=== PATIENT | male | born 1990 | race Caucasian/White ===

== ENCOUNTER 2018-01-05 12:21 | Emergency (ER) | payer BC ==
[2018-01-05 12:23] VITALS: BP 122/76; BMI 27.3
--- NOTE | 2018-01-05 12:50 | RAD ---
HISTORY: Pain Study: Three-view right ankle Comparison: No priors Findings: There is lateral soft tissue swelling of the ankle. No fracture or dislocation is seen. Ankle mortis e is well maintained. IMPRESSION: Lateral soft tissue swelling without fracture. Reported By:
--- NOTE | 2018-01-05 13:05 | DR.EXTPAIN ---
HPI - Time seen Time seen: 12:40 - PCP Primary Care Physician: KIM - HPI Comment HPI Comment: rolled rt ankle 1 hr ago, prior rt ankjle sprain and prior ' hairline fx' rt ankle per pt - Complaint/Symptoms Chief Complaint:: PT C/O RT ANKLE PAIN PT STATE HE TWISTED HIS ANKLE AND FELT A POP AND SOMEONE FELL ON TOP OF HIS FOOT. PT STATES THE WAS PLAYING BASKETBALL AND THIS IS NOT THER FIRST TIME HE HAS INJURED THIS ANKLE. PATIENT IS UNABLE TO BARE WEIGHT ON RIGHT ANKLE - Nurses notes reviewed Nurses Notes Review: Yes - Source History Provided: Patient - Mode of arrival Mode of Arrival: Ambulatory - Timing Onset of Chief Complaint: 01/05/18 PMH - PMH Past Medical History: No Past Medical History Comment: prior rt ankle injury x 2 Past Surgical History: No - Family History History of Family Medical Conditions: No - Social History Does patient currently use any type of tobacco product: Yes Have you used tobacco products in the last 12 months: Yes Type of Tobacco Use: Cigarettes Does any household member use tobacco: Yes Alcohol Use: None Do you use any recreational Drugs:: No Lives With: Family Lives Where: Home - infectious screening In the last 2 months have you had wt loss of >10#?: NO Have you had fever, night sweats or hemotysis?: No Have you traveled outside the country in the last 6 months?: No Isolation: Standard ROS - Review of Systems Constitutional: No Symptoms Reported Eyes: No Symptoms Reported ENTM: No Symptoms Reported Respiratoy: No Symptoms Reported Cardiovascular: No Symptoms Reported Gastrointestinal/Abdominal: No Symptoms Reported Genitourinary: No Symptoms Reported Neurological: No Symptoms Reported Musculoskeletal: Right, Ankle Integumentary: No Symptoms Reported Hematologic/Lymphatic: No Symptoms Reported Psychiatric: No Symptoms Reported All Other Systems: Reviewed and Negative PE - Vital Signs Vitals: Temperature 98.9 F Pulse Rate 106 Respiratory Rate 20 Blood Pressure 122/76 O2 Sat by Pulse Oximetry 100 - General Limitations: No Limitations General Appearance: Alert, In No Apparent Distress - Head Head Exam: Normal Inspection - Eyes Eye exam: Normal Appearance - ENT ENT Exam: Normal Exam - Neck Neck Exam: Normal Inspection - Chest Chest Inspection: Normal Inspection - Respiratory Respiratory Exam: Normal Lung Sounds Bilat - Cardiovascular Cardiovascular Exam: Regular Rate, Normal Rhythm - Abdominal Exam Abdominal Exam: Normal Inspection, Normal Bowel Sounds, Soft - Extremities Extremities Exam: Normal Inspection - Lower Extremities Ankle Exam: Tenderness, Swelling. negative: Deformity, Crepitus, Dislocation, Erythema Foot/Toe Exam: Normal Inspection - Psychiatric Psychiatric Exam: Normal Affect, Normal Mood - Skin Skin Exam: Warm, Dry, Intact ROR - XRAY XRAY Interpreted by: Radiologist XRAY Findings: rt ankle xray no acute fx - Diagnosis Discharge Problem: Right ankle sprain Qualifiers: Encounter type: initial encounter Involved ligament of ankle: unspecified ligament Qualified Code(s): S93.401A - Sprain of unspecified ligament of right ankle, initial encounter - Discharge Plan Disposition: HOME, SELF-CARE Condition: Stable Prescriptions: Ketorolac Tromethamine [Toradol Tab] 10 mg PO Q8H PRN #12 tab PRN Reason: Pain - Follow ups/Referrals Follow ups/Referrals: NFD,None [Primary Care Provider] - 3 days - Instructions
== END 2018-01-05 13:19 | disposition home or self-care (01) ==
LOC: ER 12:35
DX: S93.401A Sprain of unspecified ligament of right ankle, initial encounter (principal); Y93.67 Activity, basketball; Y92.89 Other specified places as the place of occurrence of the external cause
CPT/HCPCS: 73610; 99282